=== PATIENT | female | born 1985 | race African-American/Black ===

== ENCOUNTER 2017-08-09 22:53 | Emergency (ER) | payer OTHER ==
[~2017-08-09] VITALS: Ht 198.1 cm; Wt 82.6 kg
[~2017-08-09 22:53] MED LIST: CITRATE OF MAG296 ML PO; IBUPROFEN 400400 M2 PO; PEPCID20 MG PO
[2017-08-09 23:23] LABS: URINE BILIRUBIN NEGATIVE (Negative); URINE BLOOD NEGATIVE (Negative); URINE CLARITY SL CLOUDY; URINE COLOR YELLOW; URINE GLUCOSE-RANDOM* NEGATIVE (Negative); URINE KETONES NEGATIVE (Negative); URINE LEUKOCYTES-REFLEX NEGATIVE (Negative); URINE PROTEIN (DIPSTICK) NEGATIVE (Negative); URINE SPECIFIC GRAVITY 1.025 (1.005-1.035); URINE UROBILINOGEN 0.2 E.U./dl (0.2-1.0)
[2017-08-09 23:25] LABS: URINE NITRITE-REFLEX POSITIVE (Negative)
[2017-08-09 23:38] LABS: BACTERIA-REFLEX >30 Many /HPF (None Seen); CASTS None Seen /LPF (None Seen); MUCUS 0-3 Light strn/LPF (None Seen); SQUAMOUS None Seen /LPF (0-3); URINE WBC-REFLEX 0-5 Rare /HPF (0-5)
[2017-08-09 23:39] LABS: CRYSTALS None Seen /LPF (None Seen); TRANSITIONAL EPITHEL CELL 0-3 Few /LPF (None Seen); URINE RBC 0-2 Rare /HPF (0-2)
[2017-08-09] MEDS ORDERED: PYRIDIUM200 MG PO (23:50)
[2017-08-09] MEDS ORDERED: MACROBID 100 M100 M1 PO (23:50)
[2017-08-10 00:07] VITALS: BP 126/70
== END 2017-08-10 00:12 | disposition home or self-care (01) ==
LOC: ER 22:53
PROVIDERS: Emergency Medicine
DX: N39.0 Urinary tract infection, site not specified (principal)

== ENCOUNTER 2017-09-23 05:23 | Emergency (ER) | payer OTHER ==
[~2017-09-23] VITALS: Ht 152.4 cm; Wt 82.6 kg
[~2017-09-23 05:23] MED LIST changes: +MACROBID 100 M100 M1 PO; +PYRIDIUM200 MG PO
[2017-09-23 06:20] LABS: CALCIUM 8.8 mg/dL (8.5-10.1); CREATININE 0.8 mg/dL (0.6-1.0); POTASSIUM 3.8 mmol/L (3.5-5.1)
[2017-09-23 06:23] LABS: URIC ACID* 4.4 mg/dL (2.6-7.2)
[2017-09-23] MEDS ORDERED: NORCO 5-325 TA1 EACH PO (07:38)
[2017-09-23] MEDS ORDERED: COLCHICINE0.6 MG PO (07:38)
[2017-09-23 08:13] VITALS: BP 114/99
== END 2017-09-23 08:14 | disposition home or self-care (01) ==
LOC: ER 05:23
PROVIDERS: Emergency Medicine
DX: M10.9 Gout, unspecified (principal)

== ENCOUNTER 2017-12-01 17:17 | Emergency (ER) | payer OTHER ==
[~2017-12-01] VITALS: Ht 152.4 cm; Wt 81.7 kg
[~2017-12-01 17:17] MED LIST changes: +COLCHICINE0.6 MG PO; +NORCO 5-325 TA1 EACH PO
[2017-12-01 17:26] VITALS: BP 105/77
[2017-12-01] MEDS ORDERED: NAPROSYN500 MG PO (18:48)
== END 2017-12-01 19:04 | disposition home or self-care (01) ==
LOC: ER 17:17
DX: S83.8X2A Sprain of other specified parts of left knee, initial encounter (principal); M70.962 Unspecified soft tissue disorder related to use, overuse and pressure, left lower leg; Z98.890 Other specified postprocedural states; X58.XXXA Exposure to other specified factors, initial encounter; Y99.0 Civilian activity done for income or pay; Y92.89 Other specified places as the place of occurrence of the external cause; Y99.8 Other external cause status

== ENCOUNTER 2018-06-19 21:39 | Emergency (ER) | payer OTHER ==
[~2018-06-19] VITALS: Ht 152.4 cm; Wt 81.7 kg
[~2018-06-19 21:39] MED LIST changes: +NAPROSYN500 MG PO
[2018-06-19 21:41] VITALS: BP 118/76
== END 2018-06-19 21:50 | disposition left against medical advice (07) ==
LOC: ER 21:39
DX: Z53.21 Procedure and treatment not carried out due to patient leaving prior to being seen by health care provider (principal)

== ENCOUNTER 2019-07-05 16:20 | Emergency (ER) | payer OTHER ==
[~2019-07-05] VITALS: Ht 152.4 cm; Wt 84.8 kg
[2019-07-05 16:23] VITALS: BP 116/74
[2019-07-05] MEDS ORDERED: PATANOL5 ML OPHTHALMIC (16:49)
[2019-07-05] MEDS ORDERED: NEOMYCIN-POLY-7.5 ML OPHTHALMIC (16:57)
== END 2019-07-05 16:58 | disposition home or self-care (01) ==
LOC: ER 16:20
DX: H10.12 Acute atopic conjunctivitis, left eye (principal); H04.202 Unspecified epiphora, left side; M10.9 Gout, unspecified